=== PATIENT | female | born 1985 | race American Indian/Alaskan Native ===

== ENCOUNTER 2017-03-18 12:09 | Emergency (ER) | payer SELFPAY ==
[2017-03-18 12:46] LABS: Hematocrit 21.4 % (30.3-42.9); Hemoglobin 7.6 gm/dl (10.1-14.3); Mean Corpuscular HGB Conc 36 % (30-34); Mean Corpuscular Hemoglobin 34 pg (28-32); Mean Corpuscular Volume 95 fl (79-97); Platelet Count 416 K/mm3 (140-440); Red Blood Count 2.25 M/mm3 (3.65-5.03); Reticulocyte % 17.15 % (0.78-2.58); White Blood Count 14.3 K/mm3 (4.5-11.0)
[2017-03-18 12:55] LABS: Red Cell Distribution Width 24.2 % (13.2-15.2)
[2017-03-18] MEDS ORDERED: D5NS 0.2% 1,000 ML IV SCH (13:00)
[2017-03-18] MEDS ORDERED: TORADOL IV ONE (13:11)
[2017-03-18] MEDS ORDERED: MORPHINE IV ONE ×2 (13:11→14:30)
[2017-03-18] MEDS ORDERED: NACL 0.9% 1000 ML 1,000 ML IV ONE (13:11)
--- NOTE | 2017-03-18 13:16 | Emergency Department Report ---
ED General Adult HPI - General Chief complaint: Sickle Cell Crisis Stated complaint: SICKLE CELL CRISIS Time Seen by Provider: 03/18/17 13:02 Source: patient Mode of arrival: Ambulatory Limitations: No Limitations - History of Present Illness Initial comments: 31-year-old female with a history of sickle cell disease here with complaint of diffuse pain all over. Patient states that she's been having worsening pain in the last few days. She takes hydrocodone as an outpatient. This is not providing adequate pain relief. She denies fevers chills. She has no chest pain. She's not had any shortness of breath. -: days(s) (several) Radiation: non-radiation Quality: aching Consistency: constant Improves with: medication Worsens with: none Associated Symptoms: denies other symptoms - Related Data Previous Rx's Medication Instructions Recorded Last Taken Type HYDROcodone/APAP 10-325 [Brandon 1 each PO Q8HR PRN #20 tablet 03/18/17 Unknown Rx 10-325 mg TAB] Allergies Allergy/AdvReac Type Severity Reaction Status Date / Time No Known Allergies Allergy Verified 03/18/17 12:21 ED Review of Systems ROS: Stated complaint: SICKLE CELL CRISIS Other details as noted in HPI Comment: All other systems reviewed and negative Constitutional: denies: chills, fever Eyes: denies: eye pain, eye discharge, vision change ENT: denies: ear pain, throat pain Respiratory: denies: cough, shortness of breath, wheezing Cardiovascular: denies: chest pain, palpitations Endocrine: no symptoms reported Gastrointestinal: denies: abdominal pain, nausea, diarrhea Genitourinary: denies: urgency, dysuria, discharge Musculoskeletal: denies: back pain, joint swelling, arthralgia Skin: denies: rash, lesions Neurological: denies: headache, weakness, paresthesias Psychiatric: denies: anxiety, depression Hematological/Lymphatic: denies: easy bleeding, easy bruising ED Past Medical Hx - Past Medical History Previous Medical History?: Yes Hx Sickle Cell Disease: Yes - Surgical History Past Surgical History?: Yes Hx Cholecystectomy: Yes Additional Surgical History: , ectopic, ovarian cyst - Family History Family history: no significant - Social History Smoking Status: Never Smoker Substance Use Type: None - Medications Home Medications: Home Medications Medication Instructions Recorded Confirmed Last Taken Type HYDROcodone/APAP 10-325 [Brandon 1 each PO Q8HR PRN #20 tablet 03/18/17 Unknown Rx 10-325 mg TAB] ED Physical Exam - General Limitations: No Limitations General appearance: alert, in no apparent distress - Head Head exam: Present: atraumatic, normocephalic - Eye Eye exam: Present: normal appearance, PERRL, EOMI, scleral icterus. Absent: conjunctival injection - ENT ENT exam: Present: mucous membranes moist - Neck Neck exam: Present: normal inspection - Respiratory Respiratory exam: Present: normal lung sounds bilaterally. Absent: respiratory distress - Cardiovascular Cardiovascular Exam: Present: regular rate, normal rhythm, systolic murmur. Absent: diastolic murmur, rubs, gallop - GI/Abdominal GI/Abdominal exam: Present: soft, normal bowel sounds. Absent: distended, tenderness - Extremities Exam Extremities exam: Present: normal inspection - Back Exam Back exam: Present: normal inspection - Neurological Exam Neurological exam: Present: alert, oriented X3 - Psychiatric Psychiatric exam: Present: normal affect, normal mood - Skin Skin exam: Present: warm, dry, intact, normal color. Absent: rash ED Course Vital Signs 03/18/17 03/18/17 03/18/17 12:18 12:44 12:50 Temperature 98.4 F Pulse Rate 80 Respiratory 16 Rate Blood Pressure 111/68 O2 Sat by Pulse 96 96 95 Oximetry 03/18/17 03/18/17 03/18/17 13:02 13:10 13:20 Temperature Pulse Rate Respiratory Rate Blood Pressure O2 Sat by Pulse 93 95 97 Oximetry 03/18/17 03/18/17 03/18/17 13:30 13:40 13:47 Temperature Pulse Rate Respiratory 18 Rate Blood Pressure 97/66 97/66 O2 Sat by Pulse 98 92 99 Oximetry ED Medical Decision Making - Lab Data Result diagrams: 03/18/17 12:26 Laboratory Results - last 24 hr 03/18/17 03/18/17 12:26 12:26 WBC 14.3 H RBC 2.25 L Hgb 7.6 L Hct 21.4 L MCV 95 MCH 34 H MCHC 36 H RDW 24.2 H Plt Count 416 Lymph # Senior Bioinformatics Specialist Percent Retic 17.15 H HCG, Qual Negative - Medical Decision Making 31-year-old female here with complaint of diffuse pain consistent with her sickle cell crisis. Plan to treat with IV Toradol IV morphine and IV fluids. Patient has an adequate reticulocyte response. She states she is often been admitted for blood transfusions however given her hemoglobin is greater than 7 this point I do not feel she will need to be transfused. Plan 3 rounds of pain medications and intend to reassess. With improvement after first round of meds but still not back to baseline. Plan to retreat with an additional dose of morphine. Patient with significant improvement after second dose. Plan to discharge her home with oral pain medications. Portions of this chart were dictated with dictation software. There may be dictation errors contained within this note. Critical care attestation.: If time is entered above; I have spent that time in minutes in the direct care of this critically ill patient, excluding procedure time. ED Disposition Clinical Impression: Sickle cell pain crisis Disposition: - TO HOME OR SELFCARE Is pt being admited?: No Condition: Stable Instructions: Sickle Cell Crisis (ED) Prescriptions: HYDROcodone/APAP 10-325 [Brandon 10-325 mg TAB] 1 each PO Q8HR PRN #20 tablet PRN Reason: Pain Referrals: PRIMARY CARE, [Primary Care Provider] - 3-5 Days
[2017-03-18] MEDS ORDERED: BENADRYL ONE (13:36)
[2017-03-18] MEDS ORDERED: BENADRYL IV ONE (13:44)
[2017-03-18 13:48] VITALS: BP 97/66
[2017-03-18 14:51] LABS: Basophils % (Manual) 0 % (0.0-1.8); Blastocytes % (Manual) 0 %
[2017-03-18 14:52] LABS: Anisocytosis 1+; Poikilocytosis 1+; Sickle Cells 1+
[2017-03-18 14:53] LABS: Elliptocytes 1+; Stomatocytes Few; Target Cells Few
[2017-03-18 14:56] LABS: Diff Status Complete; Platelet Estimate Consistent w Auto
== END 2017-03-18 16:08 | disposition home or self-care (01) ==
LOC: ED 12:09
DX: D57.00 Hb-SS disease with crisis, unspecified (principal)
CPT/HCPCS: 36415; 84703; 85007; 85025; 85045; 96361; 96374; 96375; 96376; 99283; J1200; J1885; J2270; J7030

== ENCOUNTER 2017-04-14 11:51 | Emergency (ER) | payer SELFPAY ==
[2017-04-14 13:58] LABS: Hematocrit 22.5 % (30.3-42.9); Hemoglobin 7.7 gm/dl (10.1-14.3); Mean Corpuscular HGB Conc 34 % (30-34); Mean Corpuscular Hemoglobin 33 pg (28-32); Mean Corpuscular Volume 95 fl (79-97); Platelet Count 421 K/mm3 (140-440); Red Blood Count 2.36 M/mm3 (3.65-5.03); White Blood Count 15.7 K/mm3 (4.5-11.0)
[2017-04-14 14:04] LABS: Anion Gap 22 mmol/L; Blood Urea Nitrogen 7 mg/dL (7-17); Carbon Dioxide 19 mmol/L (22-30); Chloride 100.7 mmol/L (98-107); Glucose 104 mg/dL (65-100); Potassium 3.3 mmol/L (3.6-5.0); Sodium 138 mmol/L (137-145)
[2017-04-14 14:07] LABS: Red Cell Distribution Width 24.2 % (13.2-15.2)
[2017-04-14 14:38] LABS: Bacteria,Urine 1+ /HPF (Negative); Bilirubin,Urine NEG (Negative); Blood,Urine SM (Negative); Ketones,Urine NEG (Negative); Leukocyte Esterase,Urine NEG (Negative); Mucus,Urine FEW /HPF; Nitrite,Urine NEG (Negative); Protein,Urine <15 mg/dL mg/dL (Negative); Urobilinogen,Urine < 2.0 mg/dL (<2.0)
[2017-04-14 15:05] LABS: Basophils % (Manual) 0 % (0.0-1.8); Blastocytes % (Manual) 0 %; Eosinophils % (Manual) 0 % (0.0-4.3)
[2017-04-14 15:06] LABS: Anisocytosis 1+; Poikilocytosis 1+; Polychromasia 1+; Sickle Cells 2+
[2017-04-14 15:07] LABS: Diff Status Complete; Elliptocytes 1+; Platelet Estimate Consistent w Auto; Target Cells Few
[2017-04-14 17:37] LABS: Reticulocyte % 14.98 % (0.78-2.58)
[2017-04-14 19:07] LABS: Albumin 4.2 g/dL (3.9-5); Bilirubin,Direct 0.6 mg/dL (0-0.2); Bilirubin,Indirect 4.4 mg/dL; Magnesium 1.8 mg/dL (1.7-2.3); Total Protein 8.3 g/dL (6.3-8.2)
[2017-04-14] MEDS ORDERED: NACL 0.9% 1000 ML 1,000 ML IV ONE ×2 (20:20→21:55)
[2017-04-14] MEDS ORDERED: MORPHINE IV ONE ×2 (20:21→21:56)
[2017-04-14] MEDS ORDERED: ZOFRAN IV ONE (20:21)
--- NOTE | 2017-04-14 20:25 | Emergency Department Report ---
<THALIA BUCHANAN - Last Filed: 04/14/17 22:00> ED General Adult HPI - General Chief complaint: Nausea/Vomiting/Diarrhea Stated complaint: SICKLE CELL- gen pain Time Seen by Provider: 04/14/17 20:17 Source: patient, old records reviewed Mode of arrival: Ambulatory Limitations: No Limitations - History of Present Illness Initial comments: [place] new to [place]cp from [place] was on no meds for SSD 3rd time to [place] short time states norco not working [employer] -: Gradual Severity scale (0 -10): 10 Quality: other (gen pain) Consistency: constant Treatments Prior to Arrival: other (norco) - Related Data Previous Rx's Medication Instructions Recorded Last Taken Type oxyCODONE /ACETAMINOPHEN [Percocet 1 tab PO Q6HR PRN #10 tablet 04/14/17 Unknown Rx 5/325] Allergies Allergy/AdvReac Type Severity Reaction Status Date / Time No Known Allergies Allergy Verified 03/18/17 12:21 ED Review of Systems ROS: Stated complaint: SICKLE CELL Other details as noted in HPI Comment: Unobtainable due to pts medical conditions Constitutional: no symptoms reported, see HPI. denies: chills Eyes: as per HPI. denies: eye pain ENT: as per HPI. denies: ear pain, throat pain Respiratory: no symptoms reported, see HPI. denies: cough, orthopnea Cardiovascular: as per HPI. denies: chest pain, palpitations, dyspnea on exertion, orthopnea Endocrine: no symptoms reported, see HPI. denies: excessive sweating, flushing , intolerance to cold, intolerance to heat Gastrointestinal: as per HPI, nausea. denies: abdominal pain, vomiting, diarrhea, constipation, hematemesis, melena Genitourinary: as per HPI. denies: urgency, dysuria Musculoskeletal: as per HPI, back pain, myalgia (generalized) Skin: as per HPI. denies: rash, lesions Neurological: as per HPI, weakness. denies: headache Psychiatric: as per HPI. denies: anxiety, depression Hematological/Lymphatic: as per HPI. denies: easy bleeding ED Past Medical Hx - Past Medical History Hx Congestive Heart Failure: No Hx Diabetes: No Hx Sickle Cell Disease: Yes Hx Asthma: No Hx COPD: No Hx HIV: No Additional medical history: SSD on no meds - Surgical History Hx Cholecystectomy: Yes Additional Surgical History: , ectopic, ovarian cyst - Social History Smoking Status: Never Smoker Substance Use Type: None - Medications Home Medications: Home Medications Medication Instructions Recorded Confirmed Last Taken Type oxyCODONE /ACETAMINOPHEN [Percocet 1 tab PO Q6HR PRN #10 tablet 04/14/17 Unknown Rx 5/325] ED Physical Exam - General Limitations: No Limitations General appearance: alert, in no apparent distress, other (texting on phone) - Head Head exam: Present: atraumatic - Eye Eye exam: Present: PERRL - ENT ENT exam: Present: normal exam, mucous membranes moist - Neck Neck exam: Present: normal inspection. Absent: tenderness, meningismus - Respiratory Respiratory exam: Present: normal lung sounds bilaterally. Absent: respiratory distress, wheezes, rales, rhonchi, stridor - Cardiovascular Cardiovascular Exam: Present: regular rate. Absent: bradycardia, tachycardia - GI/Abdominal GI/Abdominal exam: Present: soft, normal bowel sounds. Absent: distended, tenderness, guarding, rebound, rigid, diminished bowel sounds - Rectal Rectal exam: Present: deferred - Extremities Exam Extremities exam: Present: normal inspection, full ROM, normal capillary refill. Absent: tenderness, pedal edema, joint swelling - Back Exam Back exam: Present: normal inspection, full ROM. Absent: tenderness, CVA tenderness (R), CVA tenderness (L) - Neurological Exam Neurological exam: Present: alert, oriented X3, CN II-XII intact, normal gait - Psychiatric Psychiatric exam: Present: normal affect, normal mood - Skin Skin exam: Present: warm, dry, intact, other (conjunc and buccal jaundice- pt states this happens when in [facility]) ED Course Vital Signs 04/14/17 04/14/17 04/14/17 13:03 19:36 20:35 Temperature 98.4 F 98.5 F 98.1 F Pulse Rate 79 79 73 Respiratory 16 18 16 Rate Blood Pressure 159/93 108/69 Blood Pressure 133/57 [Left] O2 Sat by Pulse 100 100 100 Oximetry 04/14/17 22:35 Temperature Pulse Rate 90 Respiratory 16 Rate Blood Pressure Blood Pressure 121/51 [Left] O2 Sat by Pulse 95 Oximetry - Reevaluation(s) Reevaluation #1: 04/14/17 21:00 to er today w gen pain. she states she hurts all over on admit vss nad on exam texting on phone exam unremarkable x for labs and conjunctival jaundice pmh ssd new to area lived in [place]- no meds there either only norco here lmp 2 w ago ER 8-13 ER and admit 8- no follow up Dr Ortega informed of case labs noted IVF and pain meds on admit to ER. requesting benadryl with her morphine. Reevaluation #2: 04/14/17 21:26 resting comfortably in bed vss report to Dr Ortega Reevaluation #3: 04/14/17 22:00 2nd round of meds Report to Dr Ortega ED Medical Decision Making - Lab Data Result diagrams: 04/14/17 13:33 04/14/17 13:33 - Medical Decision Making labs better than they have been previous - Differential Diagnosis SSC Critical care attestation.: If time is entered above; I have spent that time in minutes in the direct care of this critically ill patient, excluding procedure time. ED Disposition Disposition: DC-01 TO HOME OR SELFCARE Is pt being admited?: No Does the pt Need Aspirin: No Condition: Stable Instructions: Sickle Cell Crisis (ED) Additional Instructions: hydrate well take meds as instructed you need routine medical doctor Prescriptions: oxyCODONE /ACETAMINOPHEN [Percocet 5/325] 1 tab PO Q6HR PRN #10 tablet PRN Reason: Pain Referrals: RAJINDER REDDY MD [Staff Physician] - [facility] [Outside] - 3-5 Days [facility] [Outside] - 3-5 Days [facility] [Outside] - 3-5 Days [facility] [Outside] - 3-5 Days CARO JAMES MD [Staff Physician] - 3-5 Days ABRIL SINGH MD [Staff Physician] - 3-5 Days <SHALOM ORTEGA - Last Filed: 04/14/17 23:19> ED Medical Decision Making - Lab Data Result diagrams: 04/14/17 13:33 04/14/17 13:33 - Medical Decision Making This patient was seen by the nurse practitioner and signed out to me. I went to see the patient who was sleeping and/or resting comfortably. The patient does have elevated white blood cell count and elevated reticulocyte count but these are consistent with her previous visits and the reticulocyte count is even better than before. The patient also was just recently admitted here about 8 days ago. She appears to have a sickle cell pain crisis. There is no fever, chest pain, shortness of breath and she does not appear to have a chest crisis or any other significant sequela of the sickle cell disease. Vital signs stable including being afebrile. She will be discharged home with some pain medication for a few days to help finish out the pain crisis and has been given multiple referrals for primary care and/or hematology. She will return to the ER with any worsening of her symptoms or any acute distress.
[2017-04-14] MEDS ORDERED: BENADRYL IV ONE (20:40)
[2017-04-14] MEDS ORDERED: BENADRYL ONE (20:44)
[2017-04-14] MEDS ORDERED: K-DUR PO ONE (22:00)
[2017-04-14 22:45] VITALS: BP 121/51
== END 2017-04-14 23:31 | disposition home or self-care (01) ==
LOC: ED 11:51
DX: D57.00 Hb-SS disease with crisis, unspecified (principal); Z98.890 Other specified postprocedural states; Z90.49 Acquired absence of other specified parts of digestive tract
CPT/HCPCS: 36415; 80048; 80074; 81001; 82962; 83735; 84703; 85007; 85025; 85045; 96361; 96374; 96375; 96376; 99284; J1200; J2270; J2405; J7030